=== PATIENT | female | born 1955 | race Caucasian/White ===

== ENCOUNTER 2022-05-17 10:17 | Emergency (ER) | payer OTHER, SELFPAY ==
[2022-05-17 10:37] VITALS: BP 114/71; PULSE 74; RESP 18; TEMP 36.4; O2SAT 97; BMI 21.5
--- NOTE | 2022-05-17 10:52 | CRLHL7_ITS ---
For Patients: As a result of the Century Cures Act, medical imaging exams and procedure reports are released immediately into your electronic medical record. You may view this report before your referring provider. If you have questions, please contact your health care provider. HISTORY: Right calf pain. TECHNIQUE: Ultrasound of the right lower extremity deep veins using huertas-scale, color Doppler, and spectral Doppler. COMPARISON: None. FINDINGS: Right: Common femoral, femoral, and popliteal veins are patent and compressible with normal response to augmentation. Deep femoral vein is patent and compressible. Posterior tibial and peroneal veins are patent and compressible with normal response to augmentation. Greater saphenous vein is patent and compressible at the junction with the femoral vein. - Left: Common femoral vein is patent and compressible with normal response to augmentation. - Other: There is a 5.8 x 0.7 x 4.7 cm Garcia`s cyst in the right popliteal fossa. IMPRESSION: 1. No right lower extremity DVT. 2. Garcia`s cyst is noted on the right. Dictated by Marla Barakat MD @ 05/17/2022 1:09:58 PM (Electronically Signed)
--- NOTE | 2022-05-17 12:27 | ED.GENADULT ---
HPI - General Adult General Chief complaint: Extremity Pain/Injury, Lower Stated complaint: R Calf Pain Time Seen by Provider: 05/17/22 10:52 History of Present Illness HPI narrative: This 66-year-old female comes in reporting pain in her right upper calf over the past few days. She does not report any specific injury event or strenuous activity. She does not have any prior history of blood clot but comes in concerned that there may be something of this nature happening. She does not have any chest pain or shortness of breath. She does not report any knee pain when ambulating. Related Data Allergies Allergy/AdvReac Type Severity Reaction Status Date / Time No Known Drug Allergies Allergy Verified 05/17/22 10:37 Review of Systems Status of ROS: Reports: 10 or more systems reviewed and unremarkable except as noted in History and below Narrative: Constitutional: No fevers, no weight gain or loss. Eyes: No discharge. No vision changes. HENT: No congestion, no sore throat, no ear pain. Cardiovascular: No chest pain, no palpitations. Respiratory: No shortness of breath, no wheezes, no cough. Gastrointestinal: No abdominal pain, no vomiting, no diarrhea. Genitourinary: No dysuria, no hematuria. Musculoskeletal: Normal range of motion. Skin: No rashes, no pruritis. Neurological: No dizziness, weakness, sensory change, speech change. Endo/Heme/Allergies: No bruising or bleeding. No polydipsia. Pysch: no suicidality, no anxiety, no insomnia. All other systems reviewed and are negative. PFSH PFSH Social History Smoking Status: Never smoker Do you use any of these nicotine containing products: None Second hand tobacco smoke exposure: No How often do you have a drink containing alcohol: 2-3 times a week How many standard drinks containing alcohol do you have on a typical day: 1 or 2 How often do you have six or more drinks on one occasion: Never AUDIT-C Alcohol total score: 3 Non-prescribed substance use: denies use service: No Exam Narrative: Exam Narrative: Constitutional: Well-developed, well-nourished, no acute distress. HEENT: Normocephalic, atraumatic. Neck: Normal range of motion. Nontender. Supple. Heart: Intact distal pulses. Lungs: No chest discomfort. No wheezes, rhonchi, or rales. Abdomen: Nontender. Back: Normal range of motion. Extremities: Normal range of motion. No injury. Diffuse pain in the right upper posterior calf region. There is no sign of bruising or significant swelling. Skin: Intact. No rash. Warm. No erythema or pallor. Neurologic: No altered sensation. No weakness. Alert and oriented. Psychiatric: No suicidality. No anxiety or depression. No insomnia. Nursing notes and vitals signs are reviewed. Const: Vital Signs, click to edit/add: Vital Signs - 24 hr 05/17/22 10:37 Temperature 97.6 F Pulse Rate [Pulse Oximeter] 74 Respiratory Rate 18 Blood Pressure [Ri ght Upper Arm] 114/71 Pulse Oximetry 97 Oxygen Delivery Me thod Room Air Course Vital Signs Vital signs: Initial Vital Signs Temperature 97.6 F 05/17/22 10:37 Temperature Source Temporal Artery Scan 05/17/22 10:37 Pulse Rate 74 05/17/22 10:37 Pulse Rhythm 05/17/22 10:37 Respiratory Rate 18 05/17/22 10:37 Blood Pressure 114/71 05/17/22 10:37 Blood Pressure Mean 85 05/17/22 10:37 Pulse Oximetry 97 05/17/22 10:37 Oxygen Delivery Method 05/17/22 10:37 Vital Signs Temperature 97.6 F 05/17/22 10:37 Pulse Rate 74 05/17/22 10:37 Respiratory Rate 18 05/17/22 10:37 Blood Pressure 114/71 05/17/22 10:37 Pulse Oximetry 97 05/17/22 10:37 Oxygen Delivery Method 05/17/22 10:37 Temperature 97.6 F 05/17/22 10:37 Pulse Rate 74 05/17/22 10:37 Respiratory Rate 18 05/17/22 10:37 Blood Pressure 114/71 05/17/22 10:37 Pulse Oximetry 97 05/17/22 10:37 Oxygen Delivery Method 05/17/22 10:37 Medical Decision Making MDM Narrative Medical decision making narrative: This patient comes in with right calf symptoms as described above. An ultrasound of the right lower extremity shows no evidence of deep venous thrombus but there is some fluid typical of a Garcia cyst. This information was relayed to the patient. She is not having much discomfort and has normal range of motion. I advised her to follow-up with her primary physician or orthopedic clinic as needed. She can continue with activity as tolerated and use [id number] medicines as needed and directed. Discharge Plan Discharge Clinical Impression: Garcia's cyst Patient Disposition: Home, Self-Care Condition: Stable Additional Instructions: Take ogym-igy-[id number] medications as needed and indicated. Follow up with MD or return if worsening. Follow Up/Referrals: Provider,Not a Local [Primary Care Provider] - Stand Alone Forms: [employer] Info Instructions
== END 2022-05-17 13:04 | disposition home or self-care (01) ==
LOC: ED 12:39
PROVIDERS: Emergency Provider Emergency Medicine Emergency Medical Services
DX: M71.21 Synovial cyst of popliteal space [Baker], right knee (principal)
CPT/HCPCS: 93971; 99283; 99284

== ENCOUNTER 2024-10-24 13:43 | Outpatient (CLI) | payer MEDICARE, OTHER, SELFPAY ==
--- NOTE | 2024-10-24 14:00 | CRLHL7_ITS ---
For Patients: As a result of the Century Cures Act, medical imaging exams and procedure reports are released immediately into your electronic medical record. You may view this report before your referring provider. If you have questions, please contact your health care provider. INDICATION: Leiomyoma of uterus COMPARISON: none TECHNIQUE: 2D huertas scale and color Doppler images were acquired of the pelvis using a transabdominal and transvaginal approach. FINDINGS: Numerous uterine fibroids are present, some of which are exophytic/partially exophytic. Uterine echotexture is heterogeneous. Left-sided partially exophytic fibroid measures 5.9 x 4.7 x 7.3 cm. Left fundal fibroid measures 2.3 x 1.7 x 2.3 cm. Right-sided exophytic lower uterine segment fibroid measures 2.9 x 2.1 x 2.7 cm. Exophytic fundal fibroid measures 4.6 x 1.8 x 4.8 cm. Uterus measures 5.8 cm in length by 5.3 cm in AP diameter by 10.1 cm in transverse dimension. Endometrium is thickened and heterogeneous with multiple small cystic areas. Increased vascularity noted with the endometrial stripe. The endometrium measures 9 millimeters. The right ovary measures 2.8 x 2.1 x 1.5 cm in size and the left ovary measures 4.2 x 2.3 x 3.7 cm. The ovaries demonstrate normal arterial and venous blood flow on color Doppler analysis. There are no suspicious fluid collections within the cul-de-sac. Right ovarian volume 4.5 cc. Left ovarian volume 18.7 cc. Multiple cysts/follicles are present within each ovary, measuring up to 1.1 cm on the right. No abnormal vascularity regarding the ovaries noted. IMPRESSION: Leiomyomatous uterus with multiple fibroids measuring up to 7.3 cm. Thickened, multicystic, heterogeneous and vascular endometrium measuring 9 millimeters. Dictated by Prasanna Jamil MD @ 10/24/2024 3:29:21 PM (Electronically Signed)
== END 2024-10-24 13:44 | disposition home or self-care (01) ==
LOC: US 13:45
PROVIDERS: PCP Family Medicine; Visit Provider Obstetrics & Gynecology
DX: D25.9 Leiomyoma of uterus, unspecified (principal); R93.89 Abnormal findings on diagnostic imaging of other specified body structures
CPT/HCPCS: 76830; 76856

== ENCOUNTER 2024-11-09 07:37 | Day surgery (SDC) | payer MEDICARE, OTHER, SELFPAY ==
[2024-11-09 07:45] VITALS: BP 112/72; PULSE 66; RESP 16; O2SAT 95; BMI 21.9
[2024-11-09] MEDS: LACTATED RINGERS 1000 ML 1,000 ML 100 ML IV (08:15)
[2024-11-09] MEDS: SODIUM CHLORIDE 0.9 % (FLUSH) 10 ML SYRINGE IVF (08:22)
--- NOTE | 2024-11-09 08:38 | W.PM.H&PU ---
History & Physical Update History & Physical Update H&P Reviewed and patient assessed: No changes noted
--- NOTE | 2024-11-09 09:09 | P.ANES_ITS ---
Anesthesia Charges Start Date/Time Anesthesia Start Date: 11/09/24 Anesthesia Start Time: 09:23 Stop Date/Time Anesthesia Stop Date: 11/09/24 Anesthesia Stop Time: 10:19 Coding CPT Codes CPT Codes: ANESTH HYSTEROSCOPE/GRAPH - 80721 ([id number]) P2 - PATIENT W/MILD SYST DISEASE, QK - ADVERTISER 2-4 CNCRNT ANES PROC, QX - CAMPUS COORDINATOR SVC W/ MD MED DIRECTION
--- NOTE | 2024-11-09 09:09 | W.ANESCHARGE ---
Anesthesia Charges Start Date/Time Anesthesia Start Date: 11/09/24 Anesthesia Start Time: 09:23 Stop Date/Time Anesthesia Stop Date: 11/09/24 Anesthesia Stop Time: 10:19 Coding CPT Codes CPT Codes: ANESTH HYSTEROSCOPE/GRAPH - 79304 ([id number]) P2 - PATIENT W/MILD SYST DISEASE, QK - EVAPORATOR HELPER 2-4 CNCRNT ANES PROC, QX - COCOA POWDER MIXER OPERATOR SVC W/ MD MED DIRECTION
[2024-11-09] MEDS: LIDOCAINE 1% MDV 20 ML INJECTION (09:50)
[2024-11-09 10:15] VITALS: BP 115/64; PULSE 67; RESP 14; TEMP 36.8; O2SAT 98
--- NOTE | 2024-11-09 10:28 | P.ANES_ITS ---
Anesthesia Charges Start Date/Time Anesthesia Start Date: 11/09/24 Anesthesia Start Time: 09:23 Stop Date/Time Anesthesia Stop Date: 11/09/24 Anesthesia Stop Time: 10:19 Coding CPT Codes CPT Codes: ANESTH HYSTEROSCOPE/GRAPH - 29633 ([id number]) P2 - PATIENT W/MILD SYST DISEASE, QK - PUMPMAN 2-4 CNCRNT ANES PROC, QX - PSYCHIATRIC TECHNICIAN ASSISTANT SVC W/ MD MED DIRECTION
--- NOTE | 2024-11-09 10:28 | W.ANESCHARGE ---
Anesthesia Charges Start Date/Time Anesthesia Start Date: 11/09/24 Anesthesia Start Time: 09:23 Stop Date/Time Anesthesia Stop Date: 11/09/24 Anesthesia Stop Time: 10:19 Coding CPT Codes CPT Codes: ANESTH HYSTEROSCOPE/GRAPH - 52166 ([id number]) P2 - PATIENT W/MILD SYST DISEASE, QK - OCEAN FREIGHT FORWARDER 2-4 CNCRNT ANES PROC, QX - CANTEEN ATTENDANT SVC W/ MD MED DIRECTION
[2024-11-09 10:30] VITALS: BP 110/63; PULSE 73; RESP 16; O2SAT 99
--- NOTE | 2024-11-09 10:30 | SUR.OPER ---
deficit was 65ml
[2024-11-09] MEDS: MEPERIDINE 25 MG/ML INJ 12.5 MG IVP (10:55)
[2024-11-09 11:00] VITALS: BP 127/74; PULSE 71; RESP 14; O2SAT 99
[2024-11-09 11:15] VITALS: BP 126/64; PULSE 73; RESP 16; TEMP 36.8; O2SAT 100
--- NOTE | 2024-11-09 12:23 | P.GYNPRC_ITS ---
Procedure Note Date of procedure: 11/09/24 Will [facility] bill your pro fee for this procedure?: Yes Pre-op diagnosis: Thickened endometrium on pelvic ultrasound Cervical stenosis Post-op diagnosis: Endometrial polyps Otherwise as above Procedure: Hysteroscopy, polypectomy, visual dilation and curettage Repair of vaginal laceration Anesthesia: MAC and local Complications: 1. Apparent broncho- or laryngospasm during patient preparation; treated by anesthesia team with broncodilator. Refer to their note for full detail. 2. Small laceration along right anterior vaginal introitus near opening of right periurethral gland. Surgeon: Gretchen Peres MD Estimated blood loss (mL): 5 IV fluids (mL): 800 Urine Output (mL): 100 Pathology: specimen obtained, sent to pathology (endometrial curettings) Condition: stable Disposition: same day Findings: 1. On exam under anesthesia, uterus was again found to be bulky and enlarged. Her vaginal introitus was small and atrophic in appearance. External cervical os was stenotic, but did open with smallest dilator, spilling abundant mucus. 2. Upon hysteroscopy, survey of the endocervix was normal. Survey of the endometrial cavity revealed three endometrial polyps, ranging in size from approximately 4 to 1 cm in greatest dimension. The larger two were at least partially cystic. The endometrium was otherwise atrophic in appearance. Tubal ostia were not visualized. 3. Saline deficit 65 mL. Procedure Description: Procedure in detail: Patient was taken to the operating room with IV running. She was positioned in dorsal lithotomy position with her legs fully supported in Yellofin stirrups. Monitored anesthesia care was administered. She was prepped and draped in the usual sterile fashion. Exam under anesthesia was performed for the above-noted findings. Speculum was inserted. Cervix visualized and grasped along the anterior lip with a single-tooth tenaculum. Cervix was serially dilated to accommodate the TRUCLEAR hysteroscope. This was assembled with saline inflow and outflow in place. The line was flushed of bubbles. The hysteroscope was advanced through the cervix into the endometrial cavity for the above noted findings. The tissue morcellator was then inserted through the operating channel. Window lock was performed. Under direct visualization, the endometrial cavity was circumferentially curetted with the tissue morcellator. The hysteroscope and morcellator were then removed from the uterus. Tenaculum was removed from the anterior lip of cervix. Hemostasis was noted. The small laceration at the vaginal introitus was bleeding. This was addressed with a single figure-of-8 suture of 4-O Vicryl. Patient experienced apparent broncho- or laryngospasm shortly after sedation. She was taken to recovery area in stable condition. Postoperative debrief was verbalized with OR staff, including a verification of pathology specimens to be sent as described above.
== END 2024-11-09 11:33 | disposition home or self-care (01) ==
LOC: OR 07:38
PROVIDERS: PCP Family Medicine; Visit Provider Obstetrics & Gynecology
PROC: 0UDB8ZZ Extraction of Endometrium, Via Natural or Artificial Opening Endoscopic (ICD-10-PCS; CPT 58558; principal; 2024-11-09 09:00)
DX: R93.89 Abnormal findings on diagnostic imaging of other specified body structures (principal); N88.2 Stricture and stenosis of cervix uteri; N84.0 Polyp of corpus uteri; J98.01 Acute bronchospasm; J38.5 Laryngeal spasm; N99.71 Accidental puncture and laceration of a genitourinary system organ or structure during a genitourinary system procedure
CPT/HCPCS: 58558; 57200; 00952; 36415; 86850; 86900; 86901; 88305; J2003; A9270; C1782; J0171; J1100; J2175; J2704; J3010; J7120